=== PATIENT | female | born 1965 | race Caucasian/White ===

== ENCOUNTER 2017-08-23 12:00 | Day surgery (SDC) | payer OTHER ==
[~2017-08-23] VITALS: Ht 165.1 cm; Wt 97.1 kg
[~2017-08-23 12:00] MED LIST: GABAPENTIN; IBUPROFEN600 MG PO; LIPITOR40 MG PO; TIZANIDINE HCL4 M1 PO
== END 2017-08-23 14:00 | disposition home or self-care (01) ==
LOC: CIR.AMB 12:00 → EDSTATUS 13:15 → O/R 13:15 → CIR.AMB 14:00 → O/R 19:15
DX: N83.291 Other ovarian cyst, right side (principal); N83.8 Other noninflammatory disorders of ovary, fallopian tube and broad ligament; N70.11 Chronic salpingitis